=== PATIENT | male | born 1975 | race American Indian/Alaskan Native ===

== ENCOUNTER 2017-02-06 10:41 | Emergency (ER) | payer BC ==
[2017-02-06 11:02] VITALS: BP 164/84
[2017-02-06] MEDS ORDERED: NORCO 5/325 PO ONE (12:12)
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
[2017-02-06 12:39] LABS: Basophils % (Auto) 0.4 % (0.0-1.8); Eosinophils % (Auto) 0.6 % (0.0-4.3); Hemoglobin 13.9 gm/dl (11.8-15.2); Mean Corpuscular HGB Conc 34 % (32-34); Mean Corpuscular Hemoglobin 32 pg (28-32); Mean Corpuscular Volume 95 fl (84-94); Platelet Count 283 K/mm3 (140-440); Red Blood Count 4.32 M/mm3 (3.65-5.03); Red Cell Distribution Width 12.6 % (13.2-15.2); White Blood Count 11.9 K/mm3 (4.5-11.0)
[2017-02-06 12:56] LABS: Anion Gap 15 mmol/L; Blood Urea Nitrogen 14 mg/dL (9-20); Calcium 9.1 mg/dL (8.4-10.2); Carbon Dioxide 26 mmol/L (22-30); Chloride 100.7 mmol/L (98-107); Glucose 117 mg/dL (75-100); Potassium 4.2 mmol/L (3.6-5.0); Sodium 137 mmol/L (137-145); Uric Acid 9.2 mg/dL (3.5-7.6)
[2017-02-06] MEDS ORDERED: INDOCIN PO ONE (13:00)
[2017-02-06 13:02] LABS: Erythrocyte Sedimentation Rate 18 mm/Hr (0-20)
[2017-02-06] MEDS ORDERED: COLCRYS PO ONE (13:42)
== END 2017-02-06 14:02 | disposition home or self-care (01) ==
LOC: ED 10:41
DX: M10.9 Gout, unspecified (principal); R03.0 Elevated blood-pressure reading, without diagnosis of hypertension; Z87.891 Personal history of nicotine dependence
CPT/HCPCS: 36415; 80048; 84550; 85025; 85652; 99283